=== PATIENT | male | born 1985 | race Two or more races ===

== ENCOUNTER 2017-10-15 13:25 | Inpatient (IN) | payer MEDICAID ==
[~2017-10-15] VITALS: Ht 172.7 cm; Wt 97.1 kg
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
[2017-10-15] MEDS ORDERED: HYDROMORPHONE INJ 2 MG/ML DISP.SYRIN ONE (13:59)
[2017-10-15] MEDS ORDERED: HYDROMORPHONE 1 MG/1 ML DISP.SYRIN IV ONE (14:00)
--- NOTE | 2017-10-15 14:04 | NUR ---
PHYSICIAN ASSISTANT PRIMARY CARE AT BEDSIDE
--- NOTE | 2017-10-15 15:26 | NUR ---
CALLED [employer] DIESEL PILE HAMMER OPERATOR WAS PAGED.
[2017-10-15 15:30] LABS: BASOPHILS # (AUTO) 0.5 /CMM (0.0-0.2); BASOPHILS % (AUTO) 3.1 % (0.0-2.0); EOSINOPHILS % (AUTO) 0.1 % (0.0-6.0); HEMATOCRIT 47 % (39-51); HEMOGLOBIN 16.2 g/dL (13.5-17.5); LYMPHOCYTES # (AUTO) 0.7 /CMM (0.8-4.8); LYMPHOCYTES % (AUTO) 4.2 % (20.0-44.0); MEAN CORPUSCULAR HGB CONC 34 g/dl (31.0-36.0); MEAN CORPUSCULAR VOLUME 86 fL (80-96); MONOCYTES # (AUTO) 0.7 /CMM (0.1-1.30); MONOCYTES % (AUTO) 4.5 % (2.0-12.0); NEUTROPHILS # (AUTO) 14.3 /CMM (1.8-8.9); NEUTROPHILS % (AUTO) 88.1 % (43.0-81.0); PLATELET COUNT (AUTO) 213 /CMM (150-450); RDW COEFFICIENT OF VARIATION 12.6 (11.5-15.0); RED BLOOD CELL COUNT(AUTO) 5.48 MIL/uL (4.5-6.0); WHITE BLOOD COUNT (AUTO) 16.2 K/uL (4.3-11.0)
[2017-10-15 15:33] LABS: CALCIUM, SERUM 9.1 mg/dL (8.5-10.1); CARBON DIOXIDE 26 mmol/L (21-32); CHLORIDE 104 mmol/L (98-107); CREATININE 0.9 mg/dL (0.6-1.3); GLUCOSE 99 mg/dL (74-106); POTASSIUM 4.3 mmol/L (3.5-5.1); SODIUM SERUM 140 mmol/L (136-145); UREA NITROGEN, BLOOD 11 mg/dL (7-18)
[2017-10-15 15:38] LABS: INR 0.94 (0.85-1.15)
[2017-10-15 15:42] LABS: TROPONIN I < 0.017 ng/mL (0.00-0.056)
[2017-10-15] MEDS ORDERED: FENTANYL PF 100MCG/2ML AMPUL IV ONE (16:00)
--- NOTE | 2017-10-15 16:15 | NUR ---
SENIOR TECHNICAL ANALYST NOTES RECEIVED PT FROM ER NURSE NEAL VIA MICHAEL, AWAKE, ALERT AND ORIENTED, ABLE TO AMBULATE TO BED, ROOM SET UP ORIENTATION PROVIDED, VERBALIZED UNDERSTANDING, WITH COMPLAINT OF PAIN 7/10 TO RIGHT SHOULDER AND RIBS, RESPIRATIONS NORMAL AND NOT LABORED, PLACED ON O2 AT 2LPM VIA NASAL CANULA FOR COMFORT, CALL LIGHT PLACED WITHIN REACH.
--- NOTE | 2017-10-15 16:15 | NUR ---
GAVE REPORT TO [facility] TELE PNEUMOTHORAX ROOM 102 DR GUTIERREZ
[2017-10-15] MEDS ORDERED: FENTANYL PF 100MCG/2ML AMPUL ONE (16:17)
[2017-10-15] MEDS ORDERED: MAGNESIUM HYDROXIDE 30 ML UDC PO PRN (16:30)
[2017-10-15] MEDS ORDERED: MAG HYDROX/AL HYDROX/SIMETH 30 ML UDC PO PRN (16:30)
[2017-10-15] MEDS ORDERED: ACETAMINOPHEN 325 MG TABLET PO PRN (16:30)
[2017-10-15] MEDS ORDERED: Z GUARD REMEDY 2 OZ OINT TP PRN (16:30)
[2017-10-15] MEDS ORDERED: MORPHINE SULFATE INJ 2 MG/ML DISP.SYRIN IV PRN (16:30)
[2017-10-15] MEDS ORDERED: ONDANSETRON HCL/PF 4 MG/2 ML VIAL IVP PRN (16:30)
[2017-10-15 17:00] VITALS: BP 150/95
[2017-10-15] MEDS: ENOXAPARIN SODIUM 40 MG/0.4 ML DISP.SYRIN SQ SCH (17:15)
[2017-10-15 18:02] LABS: LYMPHOCYTES % (MANUAL) 8 % (16-48); MONOCYTES % (MANUAL) 4 % (0-11.0); NEUTROPHILS % (MANUAL) 88 (42-76)
[2017-10-15] MEDS: MORPHINE SULFATE INJ 4 MG/ML DISP.SYRIN IV PRN (18:51)
--- NOTE | 2017-10-15 18:53 | NUR ---
CARGO ROUTER NOTES PT IN BED, AWAKE, ALERT AND ORIENTED, EATING DINNER, SISTER AT BEDSIDE, WITH COMPLAINT OF PAIN 8/10 TO RIGHT SHOULDER AND RIBS, PAIN MEDICATION GIVEN ORDERED, SLING AT RIGHT SHOULDER IN PLACE, CALL LIGHT WITHIN REACH, PLAN OF CARE DISCUSSED WITH PT, VERBALIZED UNDERSTANDING, NEEDS ATTENDED.
--- NOTE | 2017-10-15 18:57 | NUR ---
RN MS NOTES NOTED WITH ABRASIONS AT RIGHT KNEE AND RIGHT ANKLE, NO BLEEDING NOTED, INITIAL TREATMENT DONE, COVERED WITH STERILE DRESSING, PT STATED THAT HE THINKS THAT HE MIGHT HAVE AN ABRASION AT THE RIGHT HIP BUT DOES NOT WANT TO REMOVE HIS PANTS AT THIS TIME BECAUSE MOVEMENTS AGGRAVATE HIS PAIN, PT IS PLEASANT AND COOPERATIVE TO STAFF.
--- NOTE | 2017-10-15 19:30 | NUR ---
PHOTO EDITOR OPENING NOTES: PATIENT SITTING ON BED, AOX4, ON O2 AT 2 LPM VIA NC, BREATHING EVEN AND UNLABORED, BREATH SOUNDS CLEAR TO AUSCULTATION. APPEARS CALM AND IN NO DISTRESS, HOWEVER, HE COMPLAINS OF 8-9/10 PAIN OVER HIS R SHOULDER, R ARM AND R RIB AREA. R ARM IS UP ON A SLING. PROVIDED FOR COMFORT AND SAFETY. BED IN LOWEST AND LOCKED POSITION, SIDERAILS UP X 3, CALL LIGHT WITHIN REACH. FAMILY AT BEDSIDE. WILL CONT TO MONITOR.
[2017-10-15] MEDS: HYDROCODONE/APAP 5/325MG 1 EACH TABLET PO PRN (20:09)
--- NOTE | 2017-10-15 20:09 | NUR ---
RN NOTES: ADMINISTERED NORCO 5-325 MG PO FOR 8/10 PAIN. WILL CONT TO MONITOR.
[2017-10-16] VITALS: BP 133/80
[2017-10-16] MEDS: LIDOCAINE 5% (PATCH) 1 EA PATCH TP SCH (01:41)
[2017-10-16] MEDS: HYDROCODONE/APAP 5/325MG 1 EACH TABLET PO PRN (01:45)
--- NOTE | 2017-10-16 01:52 | NUR ---
RN NOTES: ADMINISTERED NORCO 5-325 MG PO FOR 7/10 PAIN OVER R UPPER ARM, SHOULDER AND RIB AREA. POSITIONED FOR SAFETY. WILL CONT TO MONITOR.
[2017-10-16 04:00] VITALS: BP 123/76
[2017-10-16] MEDS: MORPHINE SULFATE INJ 4 MG/ML DISP.SYRIN IV PRN ×2 (06:10→16:17)
[2017-10-16 06:51] LABS: BASOPHILS % (AUTO) 0.5 % (0.0-2.0); EOSINOPHILS % (AUTO) 0.6 % (0.0-6.0); HEMATOCRIT 43 % (39-51); HEMOGLOBIN 14.7 g/dL (13.5-17.5); LYMPHOCYTES # (AUTO) 1.3 /CMM (0.8-4.8); LYMPHOCYTES % (AUTO) 17.4 % (20.0-44.0); MEAN CORPUSCULAR HGB CONC 34 g/dl (31.0-36.0); MEAN CORPUSCULAR VOLUME 88 fL (80-96); MONOCYTES # (AUTO) 0.8 /CMM (0.1-1.30); NEUTROPHILS # (AUTO) 5.5 /CMM (1.8-8.9); NEUTROPHILS % (AUTO) 71.5 % (43.0-81.0); PLATELET COUNT (AUTO) 195 /CMM (150-450); RDW COEFFICIENT OF VARIATION 13.1 (11.5-15.0); WHITE BLOOD COUNT (AUTO) 7.7 K/uL (4.3-11.0)
--- NOTE | 2017-10-16 06:55 | NUR ---
ASSEMBLER LAY UPS CLOSING NOTES: PATIENT IN BED, AOX4, ON O2 AT 2 LPM VIA NC, BREATHING EVEN AND UNLABORED. APPEARS CALM AND IN NO DISTRESS, BUT DOES COMPLAIN OF R SHOULDER, R ARM AND R RIB PAIN. PROVIDED FOR PAIN MEDICATIONS THROUGH SHIFT, WITH SOME RELIEF. LIDODERM PATCH AT R SHOULDER, TO BE KEPT ON FOR 12 HOURS (UNTIL 1340 PM). ON TELE MONITORING: SR RATE OF 80S. PROVIDED FOR COMFORT AND SAFETY. NO ACUTE CHANGE IN CONDITION NOTED THROUGH SHIFT. BED IN LOWEST AND LOCKED POSITION, SIDERAILS UP X 3, CALL LIGHT WITHIN REACH. WILL ENDORSE TO AM RN FOR RUDY.
[2017-10-16 07:00] LABS: CALCIUM, SERUM 8.3 mg/dL (8.5-10.1); CREATININE 0.7 mg/dL (0.6-1.3); MAGNESIUM 1.9 mg/dL (1.8-2.4); PHOSPHORUS 3.7 mg/dL (2.5-4.9); POTASSIUM 3.8 mmol/L (3.5-5.1)
[2017-10-16 07:28] LABS: APPEARANCE,URINE CLEAR (CLEAR); BILIRUBIN,URINE NEGATIVE (NEGATIVE); BLOOD, URINE NEGATIVE Ery/uL (NEGATIVE); COLOR,URINE YELLOW (YELLOW); KETONES,URINE NEGATIVE (NEGATIVE); LEUKOCYTE ESTERASE ,URINE NEGATIVE (NEGATIVE); NITRITE, URINE NEGATIVE (NEGATIVE); PROTEIN,URINE NEGATIVE (NEGATIVE); UGLUCOSE NEGATIVE (NEGATIVE); UROBILINOGEN,URINE 0.2 EU/dL (0.2)
--- NOTE | 2017-10-16 07:46 | NUR ---
INFORMATION SECURITY ARCHITECT OPENING NOTES RECEIVED PT FROM NIGHTSHIFT NURSE IN STABLE CONDITION. PT IS A/O X4. NO SOB NOTED. BREATHING IS EVEN AND UNLABORED. PT IS ON 2L VIA NC AND SATING WELL @ 99%. PT DOES COMPLAIN OF AN ACHING PAIN IN HIS VARIOUS FRACTURE SITE RATED AN 8/10. WILL ADMINISTER PRN PAIN MEDICATION WHEN DUE. HE IS SR ON THE TELE MONITOR WITH A HR OF 79. IV TOP LEFT WRIST NOTED TO BE PATENT AND INTACT. NO REDNESS OR SIGNS OF INFILTRATION NOTED. BED IN LOW LOCKED POSITION, SIDE RAILS UP X2, CALL LIGHT WIHTIN REACH. WILL CONTINUE TO MONITOR
[2017-10-16 08:00] VITALS: BP 126/85
[2017-10-16] MEDS: HYDROCODONE/APAP 10/325MG 1 EA TABLET PO PRN ×2 (09:13→20:30)
--- NOTE | 2017-10-16 09:53 | NUR ---
CXR RESULTS CXR RESULTS DISCUSSED WITH DR. KHAMAG. XIE IN AGREEMENT WITH INCENTIVE SPIROMETER USE AND STATES THAT PT WILL BE SEEN BY DR. FLETCHER.
[2017-10-16 16:00] VITALS: BP 136/84
--- NOTE | 2017-10-16 18:22 | NUR ---
FOOD CART ATTENDANT CLOSING NOTES PT REMAINS IN STABLE CONDITION. ALL NEEDS WERE MET DURING SHIFT AND ORDERS CARRIED OUT ACCORDINGLY. NO ACUTE CHANGES IN CONDITION THROUGHOUT SHIFT. BREATHING REMAIN EVEN AND UNLABORED. PT IS ON 6L O2 ORDERED BY MD AND SATING WELL. IV REMAIN PATENT AND INTACT. PT'S RIGHT UPPER EXTREMITY MAINTAINED IN SLING THROUGHOUT SHIFT. PAIN PROPERLY MANAGED WITH PO AND IV MEDICATION. HE REMAINED SR ON THE TELE MONITOR THROUGHOUT SHIFT. ALL DUE MEDS WERE GIVEN. SAFETY MEASURES REMAIN IN PLACE. WILL ENDORSE TO NIGHTSHIFT NURSE FOR RUDY
[2017-10-16 20:00] VITALS: BP 114/68
[2017-10-16] MEDS: ENOXAPARIN SODIUM 40 MG/0.4 ML DISP.SYRIN SQ SCH (20:27)
--- NOTE | 2017-10-16 22:50 | NUR ---
MICA LAYER NOTES RECEIVED PT SITTING UPRIGHT. AWAKE AND RESPONSIVE, RESPIRATIONS ARE EVEN AND UNLABORED, NOT IN ANY ACUTE DISTRESS NOTED. IV SITE INTACT, NO INFILTRATION NOTED. DRESSING KEPT CLEAN AND DRY. INSTRUCTED PT TO USE CALL LIGHT WHEN ASSISTANCE IS NEEDED, CALL LIGHT IS LEFT WITHIN REACH. WILL CONTINUE TO MONITOR.
--- NOTE | 2017-10-16 22:55 | NUR ---
rEPORT GIVEN TO Jadon BYNUM. pT RESTING QUIETLY , CONTINUES ON VENTILATOR VIA TRACH, cONTINUES TO TOLERATE FDG. vSS, NO DISTRESS NOTED
--- NOTE | 2017-10-16 22:59 | NUR ---
eRROR IN LAST NOTES, WRONG PT. pT A/A/ O/ TIMES 4. RESTING QUIETLY, REQUESTING SLEEPER.
[2017-10-16] MEDS: ZOLPIDEM TARTRATE 5 MG TABLET PO PRN (23:09)
[2017-10-17] MEDS: LIDOCAINE 5% (PATCH) 1 EA PATCH TP SCH (00:21)
--- NOTE | 2017-10-17 06:15 | NUR ---
MOLD PARTER NOTES ALL DUE MEDS GIVEN, NEEDS MET AND ANTICIPATED. REMAINS A/O X4, RESPIRATIONS ARE EVEN AND UNLABORED, NOT IN ANY ACUTE DISTRESS NOTED. DENIES ANY PAIN AT THIS TIME. IV SITE INTACT, NO INFILTRATION NOTED. DRESSING KEPT CLEAN AND DRY. REMINDED PT TO USE CALL LIGHT WHEN ASSISTANCE IS NEEDED, CALL LIGHT IS LEFT WITHIN REACH. SAFETY MEASURES ARE IN PLACE. WILL ENDORSE TO NEXT SHIFT FOR CONTINUITY OF CARE.
--- NOTE | 2017-10-17 07:51 | NUR ---
SENIOR EXECUTIVE ASSISTANT NOTE PATIENT UP ON CHAIT CHEST X RAY DOING NOW ,A/O X4, RESPIRATIONS ARE EVEN AND UNLABORED, NOT IN ANY ACUTE DISTRESS NOTED. IV SITE INTACT, NO INFILTRATION NOTED CLEAN AND DRY. REMINDED PT TO USE CALL LIGHT WHEN ASSISTANCE IS NEEDED, CALL LIGHT IS LEFT WITHIN REACH. SAFETY MEASURES ARE IN PLACE. RT ARM WITH SLING TOLERATED ,ON TELE MONITOR SR , WILL CONT TO MONITOR CLOSELY
[2017-10-17 08:00] VITALS: BP 128/75
[2017-10-17 08:05] LABS: CALCIUM, SERUM 8.2 mg/dL (8.5-10.1); CREATININE 0.8 mg/dL (0.6-1.3); MAGNESIUM 1.9 mg/dL (1.8-2.4); POTASSIUM 4.1 mmol/L (3.5-5.1)
[2017-10-17] MEDS: HYDROCODONE/APAP 10/325MG 1 EA TABLET PO PRN ×2 (08:10→14:00)
--- NOTE | 2017-10-17 09:20 | NUR ---
CABLE HOOKER NOTE DR FLETCHER AWARE OF CHEST X RAY ,NO NEW ORDER GIVEN AT THIS TIME ,WILL F\U
--- NOTE | 2017-10-17 11:05 | NUR ---
YARDING AND FOLDING MACHINE OPERATOR NOTE PAIN O RT ARM AND BACK SUBSIDED , WILL MONITOR CLOSELY , ALL NEEDS ATTENDED
[2017-10-17 12:00] VITALS: BP 128/85
[2017-10-17 12:03] VITALS: BP 128/85
--- NOTE | 2017-10-17 14:11 | NUR ---
PRESS SET UP PERSON NOTE NORCO PO GIVEN FOR PAIN RT ARM AND BACK.SAT 96% NO SOB NOTED, ENCOURAGE TO KEEP 02 AT ALL TIME , SOREN RN PHOTO PRINT SPECIALIST AWARE OF PATIENT CONDITION. CONT TO KEEP RT ARM SLING , ABLE TO MOVE FINGERS ON RT ARM , CAPILLARY REFILL LESS THEN 3 SEC, SKIN WARM TO TOUCH, ENCOURAGE NWB RUE ORDERED, WILL CONT TO MONITOR CLOSELY
[2017-10-17] MEDS: MORPHINE SULFATE INJ 4 MG/ML DISP.SYRIN IV PRN ×2 (15:43→19:58)
--- NOTE | 2017-10-17 15:49 | NUR ---
FARM CREW LEADER NOTE STILL C\O SEVERE RT ARM AND BACK PAIN 8\10 SCALE, BP 125/83 SAT 98% ,MORPHINE 2 MG IV GIVEN ORDERED, WILL F\U
[2017-10-17 16:00] VITALS: BP 125/83
--- NOTE | 2017-10-17 18:20 | NUR ---
RABBLER NOTE ALL NEEDS ATTENDED, HAVING DINNER , ABLE TO EAT SELF , NO SOB NOTED, CONT ON 6 LNC NO, SOB OR PAIN AT THIS TIME , WILL CONT TO MONITOR CLOSELY, CALL LIGHT WITHIN REACH
--- NOTE | 2017-10-17 19:30 | NUR ---
AURIST INITIAL NOTE PT RECEIVED SITTING UP IN BED WITH FAMILY AT BEDSIDE. A/O X4 AND ABLE TO VERBALIZE NEEDS. ON 6L OF O2 AND SATURATING 99%. BREATHING REGULAR AND UNLABORED. TELE-SR 80'S. IV L WRIST #20 CLEAN, DRY AND FLUSHING WELL. C/O 7/10 SHOULDER PAIN. CALL LIGHT WITHIN REACH. WILL CONTINUE TO MONITOR.
[2017-10-17 20:00] VITALS: BP 137/88
[2017-10-17] MEDS: ENOXAPARIN SODIUM 40 MG/0.4 ML DISP.SYRIN SQ SCH (20:37)
[2017-10-18] VITALS: BP 139/85
[2017-10-18] MEDS: LIDOCAINE 5% (PATCH) 1 EA PATCH TP SCH (00:46)
[2017-10-18] MEDS: ZOLPIDEM TARTRATE 5 MG TABLET PO PRN ×2 (00:53→21:33)
[2017-10-18 04:00] VITALS: BP 122/69
--- NOTE | 2017-10-18 06:48 | NUR ---
SPOOLER RUBBER STRAND CLOSING NOTE PT REMAINED STABLE DURING SHIFT. ALL NEEDS ATTENDED TO PROMPTLY. PAIN MANAGED WITH MEDICATIONS. REMAINS ON 6L OF O2 AND SATURATING WELL. CALL LIGHT WITHIN REACH. WILL ENDORSE TO NEXT SHIFT FOR CONTINUITY OF CARE.
--- NOTE | 2017-10-18 07:45 | NUR ---
NOC ANALYST NOTE: RECEIVED PATIENT IN BED AND WAS SLEEPING. AROUSABLE WHEN CALLING HIS NAME, BUT REQUESTED TO HAVE SOME REST AT THIS TIME. ON BACK MAKER, SR HR= 71. HOB ELEVATED. NOTED W/ A (R) ARM SLING. PAIN LEVEL OF 6 NOTED AT THIS TIME AND HE VERBALIZED THAT IT IS TOLERABLE AT THIS TIME. ON O2 @6L/MIN VIA NC AND SATURATING 98%. TOLERATING IT WELL. BED LOCKED AT ALL TIMES. CALL LIGHT WITHIN REACH. NEEDS ANTICIPATED.
[2017-10-18 08:00] VITALS: BP 118/80
--- NOTE | 2017-10-18 09:30 | NUR ---
WOUND CARE CONSULT: PT REFUSING WOUND CONSULT AND STATES WANTS TO REST. RECOMMENDATIONS MADE FOR WOUND CARE BASED ON NURSING AND PHOTO DOCUMENTATION OF ABRASIONS. DISCUSSED WITH NURSING STAFF. WILL SEE PT PT CONDITION PERMITS. LINDA SCORE IS CURRENTLY 20.
[2017-10-18 12:00] VITALS: BP 128/81
[2017-10-18] MEDS: HYDROCODONE/APAP 10/325MG 1 EA TABLET PO PRN ×2 (12:34→18:41)
[2017-10-18 16:00] VITALS: BP 145/81
--- NOTE | 2017-10-18 18:38 | NUR ---
COORDINATOR VOLUNTEER SERVICES NOTE: PATIENT REMAINED ON STABLE CONDITION. NOT ON ANY FORM OF DISTRESS. AMBULATORY W/ STEADY GAIT. ON PREDATORY GAME HUNTER, ST HR= 106. STILL NOTED W/ O2 @ 6L/MIN VIA NC AND SATURATING 98%. (L) WRIST IV LINE REMAINED INTACT AND PATENT. REPORT TO BE GIVEN W/ PM SHIFT NURSE FOR CONTINUITY OF CARE.
--- NOTE | 2017-10-18 19:22 | NUR ---
PROP WORKER NOTES RECEIVED PT ON BED SLEEPING. A/0X4. ON NASAL CANNULA 6LPM SATURATING WELL. ON TELE MONITOR SR 71. IV ACCESS ON LWRIST HL PATENT AND INTACT. HEAD OF BED ELEVATED. SIDE RAILS UP. CALL LIGHT WITHIN REACH. WILL CONTINUE TO MONITOR PT CLOSELY.
[2017-10-18 20:00] VITALS: BP 139/76
[2017-10-18] MEDS: ENOXAPARIN SODIUM 40 MG/0.4 ML DISP.SYRIN SQ SCH (20:11)
[2017-10-18] MEDS: MORPHINE SULFATE INJ 4 MG/ML DISP.SYRIN IV PRN (21:32)
[2017-10-19] VITALS (7 sets, daily range): BP systolic 113–145; BP diastolic 65–86
[2017-10-19] MEDS: LIDOCAINE 5% (PATCH) 1 EA PATCH TP SCH (00:29)
--- NOTE | 2017-10-19 07:05 | NUR ---
RN NOTES RECEIVED PT ON BED, A/Ox4, RESPIRATION EVEN AND UNLABORED, ON 6L O2 N/C , NO SOB NOTED, ON TELE SR HR IN 70'S , L WRIST IV SITE G 20 CDI, SR UP x3, CALL LIGHT WITHIN EASY REACH, BED LOCKED AND IN LOWEST POSITION , CONTINUE TO MONITOR
--- NOTE | 2017-10-19 07:17 | NUR ---
TRACK LINER OPERATOR NOTES NO ACUTE CHANGES NOTED DURING THE SHIFT. PROVIDED COMFORT AND SAFETY. DUE MEDS GIVEN. WILL ENDORSE TO THE PM NURSE FOR RUDY.
[2017-10-19] MEDS: HYDROCODONE/APAP 10/325MG 1 EA TABLET PO PRN (07:46)
--- NOTE | 2017-10-19 12:00 | NUR ---
RN NOTES PT OUT OF BED TO BATHROOM, AMBULATORY, VSS STABLE, CONTINUE TO MONITOR.
--- NOTE | 2017-10-19 18:00 | NUR ---
RN NOTES RESPIRATION EVEN AND UNLABORED, NO SOB NOTED, SUPPORTIVE FAMILY AT THE BEDSIDE, WILL ENDOSE TO TELEVISION ENGINEER NURSE FOR RUDY
[2017-10-19] MEDS: HYDROCODONE/APAP 5/325MG 1 EACH TABLET PO PRN (19:07)
[2017-10-19] MEDS: ENOXAPARIN SODIUM 40 MG/0.4 ML DISP.SYRIN SQ SCH (21:25)
[2017-10-19] MEDS: MORPHINE SULFATE INJ 4 MG/ML DISP.SYRIN IV PRN (21:30)
[2017-10-19] MEDS: ZOLPIDEM TARTRATE 5 MG TABLET PO PRN (22:04)
[2017-10-20 00:04] VITALS: BP 126/79
[2017-10-20] MEDS ORDERED: LIDOCAINE 5% (PATCH) 1 EA PATCH TP SCH (06:00)
[2017-10-20 08:00] VITALS: BP 129/74
--- NOTE | 2017-10-20 08:00 | NUR ---
JAVA APPLICATION ENGINEER INITIAL NOTES RN RECEIVED PT IN BED SLEEPING, NO DISTRESS NOTED AT THIS TIME PER REPORT FROM PM RN PATIENT HAD TROUBLE SLEEPING THROUGH THE PM SO RN WILL ALLOW SLEEP AT THIS TIME . NOTED PT ON NASAL CANNULA 6LPM SATURATING WELL. ON TELE MONITOR SR 74. IV ACCESS ON LWRIST HL PATENT AND INTACT. SIDE RAILS UP. CALL LIGHT WITHIN REACH. RN WILL CONTINUE TO MONITOR PT THROUGHOUT THE DAY.
--- NOTE | 2017-10-20 09:00 | NUR ---
RN NOTE PATIENT UPDATED ON PLAN OF CARE, PATIENT ACKNOWLEDGED UNDERSTANDING.
[2017-10-20 12:00] VITALS: BP 142/86
--- NOTE | 2017-10-20 19:00 | NUR ---
RN NOTE PATIENT DISCHARGE , IV REMOVED PRESCRIPTIONS GIVEN , CONTINUATION OF CARE GIVEN PATIENT IN STABLE CONDITION PICTURES TAKEN , DRESSING ENFORCED, EXTRA SLING GIVEN TO THE PATIENT WELL DRESSING CHANGE SUPPLIES.
== END 2017-10-20 18:50 | disposition home or self-care (01) | DRG 135 ==
LOC: ER 13:27 → TELE1 16:00 → MEDSG1 10-20 11:54
PROVIDERS: ADMIT Internal Medicine; ATTEND Internal Medicine
DX: S27.0XXA Traumatic pneumothorax, initial encounter (principal); J96.01 Acute respiratory failure with hypoxia; S22.41XA Multiple fractures of ribs, right side, initial encounter for closed fracture; S42.021A Displaced fracture of shaft of right clavicle, initial encounter for closed fracture; D72.829 Elevated white blood cell count, unspecified; S42.101A Fracture of unspecified part of scapula, right shoulder, initial encounter for closed fracture; V18.4XXA Pedal cycle driver injured in noncollision transport accident in traffic accident, initial encounter; Y93.C2 Activity, hand held interactive electronic device; Y93.55 Activity, bike riding; Y92.9 Unspecified place or not applicable; S30.1XXA Contusion of abdominal wall, initial encounter
CPT/HCPCS: 36415; 71045-TC; 71046; 71100-TC; 73000-TC; 73502; 80048-TC; 81000-TC; 83735-TC; 84100-TC; 84484-TC; 85025-TC; 85730-TC; 87040-TC; 87086-TC; A4606; A6402; A6403; J1170; J1650; J2270; J3010; Z7610